=== PATIENT | female | born 1945 | race Caucasian/White ===

== ENCOUNTER → 2024-03-09 | Outpatient (CLI) | payer MEDICARE, BC ==
[~2024-03-09] MED LIST: (None)20 M1 PO; BENZ100A PO; Zithromax250 MG PO
== END | disposition home or self-care (01) ==
LOC: LAB SHORT 10:00 → LAB 10:00
DX: A63.0 Anogenital (venereal) warts (principal)
CPT/HCPCS: 87070; 87205

== ENCOUNTER → 2024-03-22 | Outpatient (CLI) | payer MEDICARE, BC ==
[2024-03-23 19:35] LABS: Creatinine Urine 83.7 mg/dL (27.00-270.00); Protein, Urine Quantitative 82.9 mg/dL (0.0-11.9)
[2024-03-28 15:47] LABS: ALPHA-1 %,URINE 0.2 %; ALPHA-2 %,URINE 0.3 %; BETA GLOBULIN %,URINE 61.4 %; GAMMA GLOBULIN %,URINE 20.1 %; HOURS COLLECTED 24 hr; PARAPROTEIN EXCRETION/24 HOUR 276.5; TOTAL VOLUME 500 mL
== END ==
LOC: LAB 19:00 → LAB SHORT 19:00 → LAB FUT 03-21 14:35
PROVIDERS: Internal Medicine Nephrology
DX: N18.30 Chronic kidney disease, stage 3 unspecified (principal); D63.1 Anemia in chronic kidney disease; N25.81 Secondary hyperparathyroidism of renal origin; E55.9 Vitamin D deficiency, unspecified; E78.00 Pure hypercholesterolemia, unspecified; R76.9 Abnormal immunological finding in serum, unspecified; R94.5 Abnormal results of liver function studies; R94.6 Abnormal results of thyroid function studies; D51.8 Other vitamin B12 deficiency anemias; D52.8 Other folate deficiency anemias; D50.9 Iron deficiency anemia, unspecified
CPT/HCPCS: 81050; 82043; 82570; 84156; 84166; 86335

== ENCOUNTER 2024-06-13 05:41 | Inpatient (IN) | payer MEDICARE, BC ==
[~2024-06-13] VITALS: Ht 165.1 cm; Wt 90.4 kg
[2024-06-13 06:17] LABS: BASOPHILS ABSOLUTE AUTO 0.02 K/mm3 (0.00-0.23); BASOPHILS PERCENT AUTO 1 % (0-2); EOSINOPHILS PERCENT AUTO 3 % (0-6); Hemoglobin 8.6 g/dL (11.5-16.0); IMMATURE GRAN ABSOLUTE AUTO 0.03 K/mm3 (0.00-0.10); IMMATURE GRAN PERCENT AUTO 1 % (0-1); LYMPHOCYTES ABSOLUTE AUTO 1.01 K/mm3 (0.84-5.20); LYMPHOCYTES PERCENT AUTO 26 % (21-46); MONOCYTES ABSOLUTE AUTO 0.33 K/mm3 (0.16-1.47); MONOCYTES PERCENT AUTO 9 % (4-13); Mean Corpuscular HGB 30.7 pg (26.0-34.0); Mean Corpuscular HGB Conc 29.7 g/dL (31.5-36.5); Mean Corpuscular Volume 104 fL (80-100); Mean Platelet Volume 10.4 fL (9.1-12.4); NEUTROPHILS ABSOLUTE AUTO 2.35 K/mm3 (1.96-9.15); NEUTROPHILS PERCENT AUTO 61 % (41-73); Platelet Count 148 K/mm3 (150-400); RDW Coefficient Variation 19.9 % (11.7-14.2); RDW Standard Deviation 73.3 fL (35.1-46.3); White Blood Cell Count 3.84 K/mm3 (4.00-11.30)
[2024-06-13 06:35] LABS: Source, Urine Straight Cath
[2024-06-13 06:43] LABS: Bicarbonate Venous 26.2 mmol/L (24.0-30.0); PCO2 Venous 31.5 mmHg (38-42); pH Blood Venous 7.51 (7.34-7.37)
[2024-06-13 06:45] LABS: Appearance, Urine Cloudy (Clear); Bilirubin, Urine Neg (Neg); Blood, Urine 4+ (Neg); Color, Urine Yellow (P-Yellow); Glucose Qualitative, Urine Neg (Neg); Ketones, Urine Neg (Neg); Leukocyte Esterase, Urine 3+ (Neg); Nitrite, Urine Pos (Neg); Protein, Urine 3+ (Neg); Urobilinogen, Urine NORM (Normal)
[2024-06-13 07:05] LABS: White Blood Cells, Urine TNTC /hpf (0-5)
[2024-06-13 07:06] LABS: Bacteria Many /hpf; Squamous Epithelial Cells Mod /hpf (Few)
[2024-06-13] MEDS ORDERED: NS 1,000 ML IV SCH (07:20)
[2024-06-13] MEDS ORDERED: Azithromycin 500 MG in NS 250 ML IV ONE (07:20)
[2024-06-13] MEDS ORDERED: CefTRIAXone Sodium 1,000 MG in NS 50 ML IV ONE (07:20)
[2024-06-13 07:26] LABS: Influenza A, PCR NEGATIVE (NEGATIVE); Influenza B, PCR NEGATIVE (NEGATIVE); Resp Syncytial Virus, PCR NEGATIVE (NEGATIVE); SARS-Cov-2 (COVID-19) PCR, MMC NEGATIVE (NEGATIVE)
[2024-06-13] MEDS ORDERED: Acetaminophen 500 MG Tab PO ONE (07:50)
[2024-06-13 08:20] LABS: Albumin, Blood 2.3 g/dL (3.4-5.0); Albumin/Globulin Ratio 0.4 (0.8-1.8); Bilirubin, Total 0.3 mg/dL (0.1-1.0); Bun/Creatinine Ratio 23.3 (12.0-20.0); Calcium, Blood 9.1 mg/dL (8.5-10.1); Creatinine, Blood 1.59 mg/dL (0.40-1.00); Globulin, Blood 5.2 g/dL (2.2-4.0); Magnesium, Blood 2.2 mg/dL (1.6-2.4); Phosphorus, Blood 3.5 mg/dL (2.5-4.9); Potassium, Blood 5.3 mmol/L (3.5-5.5); Thyroid Stimulating Hormone 0.728 uIU/mL (0.360-4.800); Total Protein, Blood 7.5 g/dL (6.4-8.2)
[2024-06-13] MEDS ORDERED: Furosemide 10 MG / ML 2ML Vial IV ONE (08:35)
[2024-06-13] MEDS ORDERED: ATOR40TA PO (09:15)
[2024-06-13] MEDS ORDERED: LOSA25 PO (09:15)
[2024-06-13] MEDS ORDERED: ASCO500 PO (09:15)
[2024-06-13] MEDS ORDERED: VITAMIN B-122000 MC1 PO (09:16)
[2024-06-13] MEDS ORDERED: Colace100 MG PO (09:16)
[2024-06-13] MEDS ORDERED: FAMO20 PO (09:17)
[2024-06-13] MEDS ORDERED: Fleet Enema132 ML PR (09:17)
[2024-06-13] MEDS ORDERED: BISA10S PR (09:17)
[2024-06-13] MEDS ORDERED: MELA3 PO (09:18)
[2024-06-13] MEDS ORDERED: METO25 PO (09:18)
[2024-06-13] MEDS ORDERED: GABA100 PO (09:18)
[2024-06-13] MEDS ORDERED: NITR.4SL SL (09:18)
[2024-06-13] MEDS ORDERED: DULCOLAX400 MG/51 PO (09:18)
[2024-06-13] MEDS ORDERED: ONDA4ODT MM (09:19)
[2024-06-13] MEDS ORDERED: OXYC5 PO (09:19)
[2024-06-13] MEDS ORDERED: ALBU90OI INH (09:20)
[2024-06-13] MEDS ORDERED: FLU VACC TS2024-25(6MOS UP)/PF 45 MCG/0.5 ML SYRINGE IM SCH (09:50)
[2024-06-13] MEDS ORDERED: Ondansetron HCl 2 MG / ML 2ML Vial IV PRN (09:50)
[2024-06-13] MEDS ORDERED: OxyCODONE HCL 5 MG TAB PO PRN (10:20)
[2024-06-13] MEDS ORDERED: Polyethylene Glycol 3350 17 gm PO PRN (10:20)
[2024-06-13] MEDS ORDERED: Midodrine 2.5 MG Tab PO SCH (11:00)
[2024-06-13] MEDS ORDERED: Metoprolol Tartrate 25 MG Tab PO SCH ×2 (13:00→21:00)
[2024-06-13] MEDS ORDERED: Midodrine 5 MG Tab PO SCH ×2 (13:00→18:00)
[2024-06-13] MEDS ORDERED: Miconazole Nitrate 2% 85 GM PWD TOP SCH (16:00)
[2024-06-13] MEDS ORDERED: Lactated Ringer's 1,000 ML IV SCH (16:15)
[2024-06-13 16:53] VITALS: BP 106/67
--- NOTE | 2024-06-13 17:27 | NUR ---
ADMISSION NOTE PT ARRIVED TO PCU AT APPROX. 1630. SHE IS ALERT TO SELF, PLACE AND FAMILY. SHE IS ABLE TO MAKE HER NEEDS KNOWN AND FOLLOWS COMMANDS. SHE ARRIVED ON 3L VIA NC WHICH IS BASELINE O2 DEMAND, SPO2 IS 97%, SHE DENIES FEELING SOB. HR NOTED TO BE AFIB 100'S, SHE DENIES FEELING CHEST PAIN/PRESSURE. PRESSURE WOUND NOTED ON COCCYX. WOUND APPEARS TO BE STAGE 3 PRESSURE ULCER. WOUND WAS CLEANED BY THIS RN AND CALCIUM ALGINATE WAS APPLIED, PLEASE SEE PHOTOS IN CHART. SBP NOTED TO BE 90-106, MIDODRINE GIVEN PER EMAR ORDERS. PW DEVICE IN IN PLACE. CALL LIGHT IS W/IN REACH.
--- NOTE | 2024-06-13 19:47 | NUR ---
ASSUMPTION OF CARE Assumed pt's care at 1900.Bedside report completed with daysvaft nurse.Pt's daughter at bedside.Plan of care reviewed with pt.Pt denies pain,denies discomfort,denies needs at this time.Call light and pt's items within reach.Will continue to monitor.
[2024-06-13 20:03] VITALS: BP 118/99
[2024-06-13] MEDS ORDERED: Sennosides 8.6 MG Tab PO SCH (21:00)
[2024-06-13] MEDS ORDERED: Lactobacil 2-S.Thermo-Bifido 1 1 Cap PO SCH (21:00)
[2024-06-14 00:20] VITALS: BP 103/59
[2024-06-14 03:49] LABS: BASOPHILS ABSOLUTE AUTO 0.01 K/mm3 (0.00-0.23); BASOPHILS PERCENT AUTO 0 % (0-2); EOSINOPHILS ABSOLUTE AUTO 0.12 K/mm3 (0.00-0.68); EOSINOPHILS PERCENT AUTO 5 % (0-6); Hematocrit 22.5 % (33.0-51.0); Hemoglobin 6.7 g/dL (11.5-16.0); IMMATURE GRAN ABSOLUTE AUTO 0.03 K/mm3 (0.00-0.10); IMMATURE GRAN PERCENT AUTO 1 % (0-1); LYMPHOCYTES ABSOLUTE AUTO 0.83 K/mm3 (0.84-5.20); LYMPHOCYTES PERCENT AUTO 31 % (21-46); MONOCYTES PERCENT AUTO 11 % (4-13); Mean Corpuscular HGB 31.2 pg (26.0-34.0); Mean Corpuscular HGB Conc 29.8 g/dL (31.5-36.5); Mean Corpuscular Volume 105 fL (80-100); Mean Platelet Volume 9.9 fL (9.1-12.4); NEUTROPHILS PERCENT AUTO 52 % (41-73); Platelet Count 120 K/mm3 (150-400); RDW Coefficient Variation 19.8 % (11.7-14.2); RDW Standard Deviation 73.4 fL (35.1-46.3); Red Blood Cell Count 2.15 M/mm3 (3.80-5.20); White Blood Cell Count 2.69 K/mm3 (4.00-11.30)
[2024-06-14 04:14] LABS: Albumin/Globulin Ratio 0.4 (0.8-1.8); Bilirubin, Total 0.2 mg/dL (0.1-1.0); Calcium, Blood 9.4 mg/dL (8.5-10.1); Creatinine, Blood 1.6 mg/dL (0.40-1.00); Potassium, Blood 5.3 mmol/L (3.5-5.5)
[2024-06-14 04:16] VITALS: BP 115/62
[2024-06-14 05:57] LABS: BASOPHILS ABSOLUTE AUTO 0.02 K/mm3 (0.00-0.23); BASOPHILS PERCENT AUTO 1 % (0-2); EOSINOPHILS ABSOLUTE AUTO 0.16 K/mm3 (0.00-0.68); EOSINOPHILS PERCENT AUTO 5 % (0-6); Hematocrit 24.8 % (33.0-51.0); Hemoglobin 7.5 g/dL (11.5-16.0); IMMATURE GRAN ABSOLUTE AUTO 0.03 K/mm3 (0.00-0.10); IMMATURE GRAN PERCENT AUTO 1 % (0-1); LYMPHOCYTES ABSOLUTE AUTO 0.85 K/mm3 (0.84-5.20); LYMPHOCYTES PERCENT AUTO 25 % (21-46); MONOCYTES PERCENT AUTO 12 % (4-13); Mean Corpuscular HGB 31.4 pg (26.0-34.0); Mean Corpuscular HGB Conc 30.2 g/dL (31.5-36.5); Mean Corpuscular Volume 104 fL (80-100); Mean Platelet Volume 9.9 fL (9.1-12.4); NEUTROPHILS ABSOLUTE AUTO 1.88 K/mm3 (1.96-9.15); NEUTROPHILS PERCENT AUTO 56 % (41-73); Platelet Count 131 K/mm3 (150-400); RDW Coefficient Variation 19.9 % (11.7-14.2); RDW Standard Deviation 73.1 fL (35.1-46.3); Red Blood Cell Count 2.39 M/mm3 (3.80-5.20); White Blood Cell Count 3.34 K/mm3 (4.00-11.30)
--- NOTE | 2024-06-14 07:33 | NUR ---
SHIFT SUMMARY PT HAS BEEN AWAKE MOST OF THE NIGHT.PT REFUSED Q2H TURNS,REPORTS THAT SHE DOES NOT WANT TO TURN DUE TO PAIN.TEACHING ON THE PRESSURE INJURY REDUCTION TEACHING COMPLETED,PT VERBALIZES UNDERSTANDING.PT REPORTES PAIN AT 5/10 THROUGHOUT THE NIGHT BUT DENIED NEED FOR PRN PAIN MEDICINE.PT AWAKE THIS MORNING,DENIES PAIN,DENIES NEEDS.CALL LIGHT AND PT'S ITEMS WITHIN REACH.
[2024-06-14 08:54] VITALS: BP 118/46
[2024-06-14] MEDS ORDERED: Atorvastatin 40 MG Tab PO SCH (09:00)
[2024-06-14] MEDS ORDERED: Enoxaparin 40 MG/0.4 ML SYR SC SCH (09:00)
[2024-06-14] MEDS ORDERED: CefTRIAXone Sodium 1,000 MG in NS 100 ML IV SCH (09:00)
[2024-06-14 12:16] VITALS: BP 130/60
[2024-06-14] MEDS ORDERED: Sod Phosphate/Sod Biphosphate 132 ML BTL PR ONE (13:30)
[2024-06-14] MEDS ORDERED: Metoprolol Tartrate 25 MG Tab PO ONE (16:05)
[2024-06-14 16:21] VITALS: BP 126/60
--- NOTE | 2024-06-14 18:13 | NUR ---
Shift Summary Pt alert, oriented x3; forgetful and anxious at times. Up to bsc with sba. Dressing to coccyx changed this afternoon to match the orders at [facility]. Pt report pain, medicated per emar. Pt denies chest pain/pressure, sob, nausea, dizziness and numb/tingling. Spo2 >90% on 3l 2 via nc. Tele afib 90-120'S, occasionally 130-150's, bp stable. Other vss. Abd soft, tender on palp, +hypoactive t/o; pt reports constipation, pt has hard stool at recum and is unable to pass, notifed Dr Mayo, new order for enema. Administered with positive results. This evening pt had run of SVT, Dr Mayo notified, new orders for BMP and mag. Other vss. No other acute chagnes noted. Will continue to monitor.
[2024-06-14 19:48] LABS: Bun/Creatinine Ratio 30.3 (12.0-20.0); Calcium, Blood 9.3 mg/dL (8.5-10.1); Creatinine, Blood 1.45 mg/dL (0.40-1.00); Magnesium, Blood 1.8 mg/dL (1.6-2.4); Potassium, Blood 4.8 mmol/L (3.5-5.5)
[2024-06-14 20:55] VITALS: BP 124/59
[2024-06-14] MEDS ORDERED: Arginine/Glutamine/Calcium Hmb 1 Packet PO SCH (21:00)
[2024-06-15] VITALS (19 sets, daily range): BP systolic 126–168; BP diastolic 47–85
--- NOTE | 2024-06-15 04:50 | NUR ---
SHIFT SUMMARY. SHIFT HAS BEEN UNREMARKABLE. PT AOX4, PLEASANT, COOPERATIVE WITH CARE, ABLE TO MAKE NEEDS KNOWN. AT TIMES IRRITABLE BUT OVERALL PLEASANT. HAS BEEN ABLE TO REST COMFORTABLY THROUGHOUT MOST OF SHIFT. HAS CONTINUED TO DENY PAIN. VITALS HAVE BEEN STABLE. CONVERTED TO SINUS EARLY IN SHIFT AND HAS MAINTAINED IN SINUS RHYTHM SINCE. DRESSING FROM DAY SHIFT REMAINS C/D/I. O2 DEMANDS HAVE REMAINED COMPLETELY STABLE. URINE OUTPUT HAS BEEN MINIMAL THROUGHOUT SHIFT BUT CHARTED APPROPRIATELY. BED LOCKED IN LOWEST POSITION. CALL LIGHT LEFT WITHIN REACH. CONTINUING TO MONITOR.
[2024-06-15] MEDS ORDERED: Meropenem 1,000 MG in NS 100 ML IV SCH (07:44)
[2024-06-15] MEDS ORDERED: NS 250 ML IV PRN (08:40)
[2024-06-15 08:59] LABS: BASOPHILS ABSOLUTE AUTO 0.01 K/mm3 (0.00-0.23); BASOPHILS PERCENT AUTO 0 % (0-2); EOSINOPHILS ABSOLUTE AUTO 0.14 K/mm3 (0.00-0.68); EOSINOPHILS PERCENT AUTO 5 % (0-6); Hematocrit 21.5 % (33.0-51.0); Hemoglobin 6.4 g/dL (11.5-16.0); IMMATURE GRAN ABSOLUTE AUTO 0.02 K/mm3 (0.00-0.10); IMMATURE GRAN PERCENT AUTO 1 % (0-1); LYMPHOCYTES ABSOLUTE AUTO 0.88 K/mm3 (0.84-5.20); LYMPHOCYTES PERCENT AUTO 31 % (21-46); MONOCYTES ABSOLUTE AUTO 0.27 K/mm3 (0.16-1.47); MONOCYTES PERCENT AUTO 10 % (4-13); Mean Corpuscular HGB 30.6 pg (26.0-34.0); Mean Corpuscular HGB Conc 29.8 g/dL (31.5-36.5); Mean Corpuscular Volume 103 fL (80-100); Mean Platelet Volume 10.5 fL (9.1-12.4); NEUTROPHILS PERCENT AUTO 53 % (41-73); Platelet Count 134 K/mm3 (150-400); RDW Coefficient Variation 19.9 % (11.7-14.2); RDW Standard Deviation 72.4 fL (35.1-46.3); Red Blood Cell Count 2.09 M/mm3 (3.80-5.20); White Blood Cell Count 2.82 K/mm3 (4.00-11.30)
[2024-06-15] MEDS ORDERED: Protein Supplement 30 ML UD PO SCH (09:00)
[2024-06-15 09:18] LABS: Bun/Creatinine Ratio 31.7 (12.0-20.0); Calcium, Blood 9.5 mg/dL (8.5-10.1); Creatinine, Blood 1.42 mg/dL (0.40-1.00); Potassium, Blood 4.7 mmol/L (3.5-5.5)
--- NOTE | 2024-06-15 12:07 | NUR ---
PT WITH LOW HBG. CALL PLACED TO PROVIDER TO UPDATE HER OF RESULTS. 1 UNIT OF PACKED RBC'S ORDERED. CONSENT FORM SIGNED AND PLACED IN CHART. VERIFIED BLOOD WITH GIANNI Alves RN. VS STABLE, AFEBRILE. PT COMPLETED FIRST 15 MINUTES OF TRANSFUSION, TOLERATING WELL. RATE INCREASED. VS STABLE AFTER 15 MINUTES. L/S CLEAR. BLOOD TRANSFUSING.
[2024-06-15 16:17] LABS: Hematocrit 23.9 % (33.0-51.0); Hemoglobin 7.3 g/dL (11.5-16.0)
[2024-06-15 17:16] LABS: IMMATURE RETIC FRACTION 19.1 % (2.3-16.0); RETIC HGB EQUIVALENT 28.7 pg (28.20-36.60); RETICULOCYTE ABSOLUTE 0.0238 M/mm3 (0.0200-0.1100); RETICULOCYTE COUNT PERCENT 1.01 % (0.50-2.50)
[2024-06-15] MEDS ORDERED: Metoprolol Tartrate 1 MG/ML 5 ML VIAL IV ONE (18:00)
--- NOTE | 2024-06-15 18:38 | NUR ---
SHIFT SUMMARY PT A&O X4, CALM, COOPERATIVE TO CARE. HR IN THE 80'S SR, DENIES CP/PRESSURE, NUMB/TINGLING. SBP STABLE T/O SHIFT, MIDORINE ORDERED TID, PT BP IN THE 140'S T/O SHIFT MIDODRINE D/C'D. O2 >92% ON 3L VIA NC, 3L AT BASELINE. PT WITH COCCYX WOUND. WOUND DRESSING CHANGED TODAY PER ORDERS. PT HAD LOW HGB OF 6.4, PROVIDER NOTIFIED, 1 UNIT OF PACKED RBC'S ORDERED. TRANSFUSION COMPLETED, PT TOLERATED WELL AND REMAINED AFEBRILE. PT REPORTED NAUSEA AFTER REPOSTIONING, MEDICATED PER EMAR. HGB INCREASED TO 7.3. PROVIDER ORDERED STOOL SAMPLE, NOT COLLECTED YET. THIS AFTERNOON PTS HR JUMPED INTO THE 130'S AND SUSTAINED. PT REPORTED DIZZY/LIGHTHEADED WITH CHEST PAIN. NOTIFIED. ORDER FOR LOPRESSOR PUSH PLACED. PT RESTING IN BED AT THIS TIME. REPORTS CP HAS RESOLVED BUT STILL HAS SOME DIZZINESS. SBP STABLE. DENIES QUESTIONS OR CONCERNS. WILL MONITOR PT AND REPORT TO ORDER DISPATCHER CHIEF RN.
[2024-06-15] MEDS ORDERED: Calcium Carbonate 500 MG Tab Chew PO PRN (19:40)
[2024-06-15] MEDS ORDERED: Metoprolol Tartrate 25 MG Tab PO SCH ×2 (21:00)
[2024-06-16 00:06] VITALS: BP 124/43
[2024-06-16 04:12] VITALS: BP 156/61
--- NOTE | 2024-06-16 05:01 | NUR ---
SHIFT SUMMARY. SHIFT HAS BEEN UNREMARKABLE. PT HAS BEEN ABLE TO REST COMFORTABLY THROUGHOUT MOST OF SHIFT. VITALS HAVE REMAINED STABLE. EARLY IN SHIFT, PT CONVERTED TO AFLUTTER WITH RATE SUSTAINED IN THE 120s-140s. MAINTAINED FOR FEW MINUTES BEFORE CONVERTING BACK TO SINUS. PT HAS BEEN IN SINUS SINCE WITH RATE MOSTLY IN THE 60s-70s. PT HAS APPEARED PAINFUL AT TIMES THROUGHOUT SHIFT BUT HAS CONTINUED TO DENY ANY PAIN MANAGEMENT VIA EMAR. AT TIMES ALLOWS FOR STAFF TO ASSIST WITH REPOSITIONING BUT AT OTHER TIMES REFUSES. IS ABLE TO REPOSITION SELF NEEDED. PT HAS HAD PUREWICK IN PLACE THROUGHOUT SHIFT. ONE DRESSING CHANGE PERFORMED THIS MORNING D/T SATURATION. OTHERWISE SHIFT HAS BEEN UNREMARKABLE. BED LOCKED IN LOWEST POSITION. CALL LIGHT LEFT WITHIN REACH. CONTINUING TO MONITOR.
[2024-06-16 05:02] LABS: BASOPHILS ABSOLUTE AUTO 0.02 K/mm3 (0.00-0.23); BASOPHILS PERCENT AUTO 1 % (0-2); EOSINOPHILS ABSOLUTE AUTO 0.11 K/mm3 (0.00-0.68); EOSINOPHILS PERCENT AUTO 3 % (0-6); Hematocrit 26.9 % (33.0-51.0); Hemoglobin 7.9 g/dL (11.5-16.0); IMMATURE GRAN ABSOLUTE AUTO 0.06 K/mm3 (0.00-0.10); IMMATURE GRAN PERCENT AUTO 2 % (0-1); LYMPHOCYTES ABSOLUTE AUTO 0.93 K/mm3 (0.84-5.20); LYMPHOCYTES PERCENT AUTO 29 % (21-46); MONOCYTES ABSOLUTE AUTO 0.29 K/mm3 (0.16-1.47); MONOCYTES PERCENT AUTO 9 % (4-13); Mean Corpuscular HGB 30.7 pg (26.0-34.0); Mean Corpuscular HGB Conc 29.4 g/dL (31.5-36.5); Mean Corpuscular Volume 105 fL (80-100); Mean Platelet Volume 10.1 fL (9.1-12.4); NEUTROPHILS ABSOLUTE AUTO 1.78 K/mm3 (1.96-9.15); NEUTROPHILS PERCENT AUTO 56 % (41-73); Platelet Count 128 K/mm3 (150-400); RDW Coefficient Variation 20.5 % (11.7-14.2); RDW Standard Deviation 77.1 fL (35.1-46.3); Red Blood Cell Count 2.57 M/mm3 (3.80-5.20); White Blood Cell Count 3.19 K/mm3 (4.00-11.30)
[2024-06-16 06:01] LABS: Bun/Creatinine Ratio 47.2 (12.0-20.0); Calcium, Blood 10.1 mg/dL (8.5-10.1); Creatinine, Blood 1.25 mg/dL (0.40-1.00)
[2024-06-16 07:24] VITALS: BP 164/56
[2024-06-16 08:47] LABS: Albumin, Blood 2.3 g/dL (3.4-5.0); Albumin/Globulin Ratio 0.4 (0.8-1.8); Bilirubin, Direct 0.1 mg/dL (0.0-0.3); Bilirubin, Indirect 0.4 mg/dL (0.1-0.7); Bilirubin, Total 0.5 mg/dL (0.1-1.0); Globulin, Blood 5.3 g/dL (2.2-4.0); Total Protein, Blood 7.6 g/dL (6.4-8.2)
[2024-06-16] MEDS ORDERED: Furosemide 10 MG/ML 4ML Vial IV ONE (09:45)
[2024-06-16 12:46] VITALS: BP 128/50
--- NOTE | 2024-06-16 14:33 | NUR ---
ORDER PLACED BY PROVIDER FOR 24 HOUR URINE COLLECTION. PT HAD PUREWICK IN PLACE, PUREWICK WAS REMOVED. PT BOTH INCONTENENT AND CONTINENT. FIRST URINATION DISCARDED. CALL PLACED TO PROVIDER TO INFORM THEM PT HAVING INCONTINCE AND UNABLE TO ACCURATELY COLLECT URINE SPECIMEN. PROVIDER STILL WANTING TO COLLECT SPECIMEN. WILL ATTMEPT TO COLLECT URINE PER PROTOCOL.
[2024-06-16] MEDS ORDERED: Azithromycin 500 MG in NS 250 ML IV SCH (16:00)
[2024-06-16] MEDS ORDERED: Metoprolol Tartrate 25 MG Tab PO ONE (17:40)
[2024-06-16 17:56] VITALS: BP 130/75
--- NOTE | 2024-06-16 18:10 | NUR ---
SHIFT SUMMARY PT A&O X4, CALM, COOPERATIVE TO CARE. PT WAS IN SR WITH HR IN THE 60'S UNTIL 1600, PT CONVERTED TO AFLUTTER IN THE 110'S-120'S, SHE DENIES ANY CP/PRESSURE, DIZZY OR LIGHTHEADED. MD CALLED, AN ADDITIONAL DOSE OF METOPROLOL 25 MG ORDERED IN ADDITION TO PT SCHEDULED DOSE. BP IN THE 120'S-130'S T/O SHIFT. PER PROVIDER IF NO IMPROVEMENT TONIGHT TO CONTACT THE HOSPITALIST FOR FURTHER MEDICATION INSTRUCTION. O2 >92% ON 3L VIA NC, 3L AT BASELINE. PT REPORTED CONGESTION THIS AM. PROVIDER WAS AT BEDSIDE AT THIS TIME, PROVIDER ORDERED ONE TIME DOSE OF LASIX. PT DENIES SOB AT THIS TIME. PUREWICK REMOVED TODAY, PT AMBULATING TO BATHROOM/COMMODE WITH WALKER. 24 HOUR URINE COLLECTION STARTED AT 1415 TODAY. CONTAINER IN BATHROOM ON ICE COLLECTING URINE. WOUND DRESSING CHANGED THIS AFTERNOON, C/D/I. PT DENIES ANY QUESTIONS AT THIS TIME. WILL MONITOR PT AND REPORT TO SALES AND MARKETING ASSISTANT RN.
[2024-06-16 20:58] VITALS: BP 105/59
[2024-06-17 00:51] VITALS: BP 114/57
[2024-06-17 04:27] VITALS: BP 139/89
[2024-06-17] MEDS ORDERED: Metoprolol Tartrate 1 MG/ML 5 ML VIAL IV ONE (04:30)
--- NOTE | 2024-06-17 04:58 | NUR ---
SHIFT SUMMARY. SHIFT HAS BEEN UNREMARKABLE THUS FAR. PT AOX4, PLEASANT, COOPERATIVE WITH CARE, ABLE TO MAKE NEEDS KNOWN. HAS BEEN ABLE TO REST COMFORTABLY THROUGHOUT MOST OF SHIFT. PT HAS BEEN MILDLY TACHYCARDIC THROUGHOUT SHIFT, MORESO WITH ACTIVITY. SPOKE WITH DR. CHACON FEW TIMES. ORDERED MAG DRAW WHICH WAS NORMAL. LATER THIS MORNING ORDERED ONE TIME DOSE OF LOPRESSOR IV 5 MG WHICH WAS ADMINISTERING, MONITORING FOR EFFICACY. 24 HOUR URINE COLLECTION CONTINUES TO RUN. PT HAD 1 INCONTINENT VOID WHICH WAS UNABLE TO BE COLLECTED. OTHERWISE ALL URINE OUTPUT HAS BEEN COLLECTED IN SPECIMEN CONTAINER. PT HAS BEEN ON 3 L O2 VIA NC AND HAS MAINTAINED ADEQUATE SATURATION. PT HAS DENIED PAIN THROUGHOUT SHIFT. BED LOCKED IN LOWEST POSITION. CALL LGIHT LEFT WITHIN REACH. CONTINUING TO MONITOR.
[2024-06-17 07:26] VITALS: BP 117/81
[2024-06-17 09:07] LABS: BASOPHILS ABSOLUTE AUTO 0.02 K/mm3 (0.00-0.23); BASOPHILS PERCENT AUTO 1 % (0-2); EOSINOPHILS ABSOLUTE AUTO 0.09 K/mm3 (0.00-0.68); EOSINOPHILS PERCENT AUTO 3 % (0-6); Hematocrit 25.9 % (33.0-51.0); IMMATURE GRAN ABSOLUTE AUTO 0.06 K/mm3 (0.00-0.10); IMMATURE GRAN PERCENT AUTO 2 % (0-1); LYMPHOCYTES ABSOLUTE AUTO 0.78 K/mm3 (0.84-5.20); LYMPHOCYTES PERCENT AUTO 24 % (21-46); MONOCYTES PERCENT AUTO 12 % (4-13); Mean Corpuscular HGB Conc 30.9 g/dL (31.5-36.5); Mean Platelet Volume 10.5 fL (9.1-12.4); NEUTROPHILS ABSOLUTE AUTO 1.88 K/mm3 (1.96-9.15); NEUTROPHILS PERCENT AUTO 58 % (41-73); NRBC ABSOLUTE 0.02 K/mm3 (0.00-0.02); NRBC Auto 0.6 /100 WBC (0.0-0.2); Platelet Count 130 K/mm3 (150-400); RDW Coefficient Variation 19.9 % (11.7-14.2); RDW Standard Deviation 69.5 fL (35.1-46.3); Red Blood Cell Count 2.58 M/mm3 (3.80-5.20); White Blood Cell Count 3.23 K/mm3 (4.00-11.30)
[2024-06-17 09:17] LABS: Mean Corpuscular Volume 100 fL (80-100)
[2024-06-17 09:26] LABS: Albumin, Blood 2.3 g/dL (3.4-5.0); Albumin/Globulin Ratio 0.4 (0.8-1.8); Bilirubin, Total 0.5 mg/dL (0.1-1.0); Bun/Creatinine Ratio 52.1 (12.0-20.0); Calcium, Blood 10.2 mg/dL (8.5-10.1); Creatinine, Blood 1.21 mg/dL (0.40-1.00); Globulin, Blood 5.2 g/dL (2.2-4.0); Potassium, Blood 4.5 mmol/L (3.5-5.5); Total Protein, Blood 7.5 g/dL (6.4-8.2)
--- NOTE | 2024-06-17 11:54 | NUR ---
ASSUMPTION OF CARE PT A&O X4, CALM, COOPERATIVE TO CARE. HR IN THE 90'S-100'S, AFLUTTER. DENIES CP/PRESSURE, NUMB/TINGLING. SBP STABLE. O2 >92% ON 3L VIA NC, 3L AT BASELINE, DENIES SOB AT THIS TIME. PT WITH PAIN FROM THE WOUND ON HER COCCYX, DRESSING CHANGES PER ORDER AND MEDICATING PER EMAR. PT SLEEPY BUT AWAKES EASILY. 24 HOUR URINE COLLECTION ONGOING, URINE ON ICE IN BATHROOM. PT AMBULATING TO TOILET WITH WALKER AND 1PA. PT STATUS CHANGE TO MEDICAL WITH TELE. ROOM AVAILABLE FOR PT. CALLED AND GAVE REPORT TO JASS MELENDREZ.
--- NOTE | 2024-06-17 13:08 | NUR ---
TRANSFER SUMMARY PT A&O X4. HR IN THE 90'S, AFLUTTER, BP STABLE. O2 >92% ON 3L VIA NC, 3L AT BL. DENIES SOB. PT RESTING IN BED. PT MEDICAL STATUS REPORT GIVEN TO MEDICAL FLOOR RN. PT TRANSFERED TO MEDICAL FLOOR VIA PCU BED WITH RN AND PCT.
--- NOTE | 2024-06-17 13:10 | NUR ---
1310 TO ROOM FROM [facility]
[2024-06-17 16:01] VITALS: BP 134/82
--- NOTE | 2024-06-17 18:45 | NUR ---
PT QUITE PLEASANT TODAY. TRANSFERRED FROM PCU TODAY. NO C/O PAIN. DRESSING CHANGED X2 TODAY R/T STOOL IN WOUND. AMBULATED MIN ASST TO BATHROOM. 24 HR URINE DONE, STOOL SAMPLE DONE. TURNING PT TO SIDE TO GET OFF WOUND MUCH POSSIBLE. NO FURHTER CONCERNS NOTED. BED IN LOW POSITION,C ALL LITE IN REACH, CALLS APPROP
[2024-06-17] MEDS ORDERED: NS 250 ML IV PRN (20:00)
[2024-06-17 20:39] VITALS: BP 130/79
--- NOTE | 2024-06-18 04:09 | NUR ---
SHIFT SUMMARY PATIENT HAD NO ACUTE CHANGES. AXOX 4 AND ONE ASSIST W/FWW TO BR. ON 3L O2 NC & BASELINE. DENIES CHEST PAIN, SOB, AND N/V. VSS/AFEBRILE. PIV INTACT. IV ABX INFUSED. DRESSING TO COCCYX CHANGED. PATIENT PREFERS SIDE LYING POSITION TO EASE COCCYX DISCOMFORT. DAUGHTER CALLED FOR UPDATE. CALL LIGHT IN REACH. BED IN LOWEST POSITION. WILL CONTINUE TO MONITOR UNTIL DAY SHIFT NURSE ASSUMES CARE.
[2024-06-18 05:02] VITALS: BP 135/76
[2024-06-18 05:31] LABS: BASOPHILS ABSOLUTE AUTO 0.02 K/mm3 (0.00-0.23); BASOPHILS PERCENT AUTO 1 % (0-2); EOSINOPHILS PERCENT AUTO 3 % (0-6); Hematocrit 26.4 % (33.0-51.0); Hemoglobin 8.3 g/dL (11.5-16.0); Mean Corpuscular HGB 31.2 pg (26.0-34.0); Mean Corpuscular HGB Conc 31.4 g/dL (31.5-36.5); Mean Corpuscular Volume 99 fL (80-100); Platelet Count 127 K/mm3 (150-400); RDW Coefficient Variation 19.8 % (11.7-14.2); RDW Standard Deviation 69.4 fL (35.1-46.3); Red Blood Cell Count 2.66 M/mm3 (3.80-5.20); White Blood Cell Count 3.47 K/mm3 (4.00-11.30)
[2024-06-18 05:44] LABS: IMMATURE GRAN ABSOLUTE AUTO 0.11 K/mm3 (0.00-0.10); IMMATURE GRAN PERCENT AUTO 3 % (0-1); LYMPHOCYTES ABSOLUTE AUTO 1.09 K/mm3 (0.84-5.20); LYMPHOCYTES PERCENT AUTO 31 % (21-46); MONOCYTES ABSOLUTE AUTO 0.38 K/mm3 (0.16-1.47); MONOCYTES PERCENT AUTO 11 % (4-13); NEUTROPHILS ABSOLUTE AUTO 1.77 K/mm3 (1.96-9.15); NEUTROPHILS PERCENT AUTO 51 % (41-73)
--- NOTE | 2024-06-18 05:48 | NUR ---
TELE MONITOR REPORTS FIVE BEAT RUN OF V-TACH X ONE. FIRST EVENT, AVIATION SAFETY OFFICER AWARE. WCTM.
[2024-06-18 06:25] LABS: Bun/Creatinine Ratio 43.9 (12.0-20.0); Calcium, Blood 10.1 mg/dL (8.5-10.1); Creatinine, Blood 1.23 mg/dL (0.40-1.00)
[2024-06-18 07:04] LABS: Stool Occult Blood Guaiac 1 Neg (Neg)
[2024-06-18 07:46] VITALS: BP 142/96
[2024-06-18] MEDS ORDERED: Metoprolol Succinate 25 MG TABCR PO SCH (09:00)
--- NOTE | 2024-06-18 12:37 | NUR ---
PER TELE. PT FLIPPED BACK TO NSR AT 60 FROM AFIB
[2024-06-18 15:24] VITALS: BP 129/55
--- NOTE | 2024-06-18 15:52 | NUR ---
SPOKE TO DR HALL IN KITCHEN. ORDERS FOR ARTIFICIAL TEARS, 2 GTT /4 HR NEEDED. L EYE
[2024-06-18] MEDS ORDERED: Peg 400/Hypromellose/Glycerin 15 DROP/ML BTL LEFTEYE PRN (15:55)
--- NOTE | 2024-06-18 17:11 | NUR ---
TELE CALLED HAS BEEN IN NSR SIINCE 1235 TODAY. JUST WENT TO SVT FOR ABOUT 2 MIN AT 130'S, THEN BACK TO NSR AT 70'S.
--- NOTE | 2024-06-18 17:14 | NUR ---
NOTIFIED DR HALL OF TELE A-TEX, NO NEW ORDERS
--- NOTE | 2024-06-18 18:19 | NUR ---
PT PLEASANT TODAY. DRESSING CHANGED TWICE TODAY. ABX RUNNING AT THIS TIME. PT CONTINUES TO BE HAVING LOOSE STOOLS. CONTINUES TO AMBULATE SBA TO BATHROOM. DID HAVE RUNS OF SVT AND DR NOTIFIED. DID CONVERT TO NSR LUNCH TIME TODAY AND HAS CONTINUED TO STAY ALL DAY. NO OTHER NEW CONCERNS NOTED. BED IN LOW POSITION, CALL LITE IN REACH, CALLS APPROP
[2024-06-18 19:19] VITALS: BP 148/67
--- NOTE | 2024-06-18 22:51 | NUR ---
TELE MONITOR REPORTS 6 SECOND RUN OF SVT AND BACK TO NSR. WCTM.
--- NOTE | 2024-06-19 04:30 | NUR ---
SHIFT SUMMARY PATIENT HAD NO ACUTE CHANGES. AXOX 4 AND SBA TO BR. ON 3L O2 NC BASELINE. TELE MONITOR NSR 70 WITH TWO TELE EVENTS: 6 SECOND RUN OF SVT AND 5 BEAT RUN OF V-TACH 3 HRS APART. DAY RN REPORTS ABOUT THE SAME AND DR AWARE. PIV INTACT. IV ABX INFUSED. EYES DROPS ADMINISTER PRN X ONE. DENIES CHEST PAIN, SOB, AND N/V. VSS/AFEBRILE. SLEPT MOST OF THE SHIFT. CALL LIGHT IN REACH. BED IN LOWEST POSITION. WILL CONTINUE TO MONITOR UNTIL DAY SHIFT NURSE ASSUMES CARE.
[2024-06-19 05:16] LABS: Hematocrit 24.9 % (33.0-51.0); Hemoglobin 7.7 g/dL (11.5-16.0); Mean Corpuscular HGB 31.3 pg (26.0-34.0); Mean Corpuscular HGB Conc 30.9 g/dL (31.5-36.5); Mean Corpuscular Volume 101 fL (80-100); Mean Platelet Volume 10.1 fL (9.1-12.4); Platelet Count 126 K/mm3 (150-400); RDW Coefficient Variation 19.8 % (11.7-14.2); RDW Standard Deviation 71.1 fL (35.1-46.3); Red Blood Cell Count 2.46 M/mm3 (3.80-5.20); White Blood Cell Count 3.93 K/mm3 (4.00-11.30)
[2024-06-19 05:34] LABS: Bun/Creatinine Ratio 45.9 (12.0-20.0); Calcium, Blood 10.1 mg/dL (8.5-10.1); Creatinine, Blood 1.22 mg/dL (0.40-1.00)
[2024-06-19 05:45] VITALS: BP 151/67
[2024-06-19 05:53] LABS: BAND PERCENT MAN 7 % (0-8); BASOPHILS ABSOLUTE MAN 0.03 K/mm3 (0.00-0.23); BASOPHILS PERCENT MAN 1 % (0-2); EOSINOPHILS ABSOLUTE MAN 0.07 K/mm3 (0.00-0.68); EOSINOPHILS PERCENT MAN 2 % (0-6); LYMPHOCYTES ABSOLUTE MAN 0.94 K/mm3 (0.84-5.20); LYMPHOCYTES PERCENT MAN 24 % (21-46); METAMYELOCYTE ABSOLUTE MAN 0.03 K/mm3 (0.00-0.00); METAMYELOCYTE PERCENT MAN 1 % (0-0); MONOCYTES ABSOLUTE MAN 0.27 K/mm3 (0.16-1.47); MONOCYTES PERCENT MAN 7 % (4-13); NEUTROPHILS ABSOLUTE MAN 2.55 K/mm3 (1.96-9.15); SEG NEUTROPHILS PERCENT MAN 58 % (41-73); TOTAL CELLS COUNTED 100
[2024-06-19 07:20] VITALS: BP 139/51
[2024-06-19] MEDS ORDERED: JUVEN PACKET1 EAC3 PO (14:27)
[2024-06-19] MEDS ORDERED: MEROPENEM1 G1 IV (14:27)
[2024-06-19] MEDS ORDERED: VISBIOME 112.51 EACH PO (14:27)
[2024-06-19] MEDS ORDERED: Calcium Carbon500 MG PO (14:27)
[2024-06-19] MEDS ORDERED: MICO100S VAG (14:28)
[2024-06-19] MEDS ORDERED: MIRALAX17 GM PO (14:28)
[2024-06-19] MEDS ORDERED: SENN187 PO (14:29)
[2024-06-19] MEDS ORDERED: Promod946 ML PO (14:29)
[2024-06-19 14:42] LABS: CORONAVIRUS COVID-19 AG Negative (NEGATIVE)
--- NOTE | 2024-06-19 14:48 | NUR ---
THIS RN CALLED [facility] TO GIVE REPORT. NO ANSWER, LEFT VM.
[2024-06-19 15:18] VITALS: BP 120/44
--- NOTE | 2024-06-19 15:21 | NUR ---
DISCHARGE NOTE PT DISCHARGED TO SNF [facility] AT 1520. PT A&OX4, VSS, AMB IND, TOLERATING PO, VOIDING, AND DENIED PAIN. WOUND CARE/DRESSING CHANGE COMPLETED. DISCHARGE PACKET GIVEN TO TRANSPORT. HARD SCRIPT COPY IN CHART AND SCRIPT PLACED IN DISCHARGE PACKET. BELONGINGS WERE RETURNED. PT ESCOURTED OUT VIA W/C BY TRANSPORT. THIS RN CALLED [facility] TO GIVE REPORT. NO ANSWER, LEFT VM.
[2024-06-20 08:11] LABS: IMMUNOGLOBULIN A 21 mg/dL (68-408); IMMUNOGLOBULIN G 2376 mg/dL (768-1632); IMMUNOGLOBULIN M 14 mg/dL (35-263)
[2024-06-20 09:25] LABS: ALBUMIN 2.75 g/dL (3.75-5.01); ALPHA 1 GLOBULIN 0.46 g/dL (0.19-0.46); ALPHA 2 GLOBULIN 0.96 g/dL (0.48-1.05); BETA GLOBULIN 0.69 g/dL (0.48-1.10); GAMMA 1.94 g/dL (0.62-1.51); IMMUNOFIXATION REFLEX IFE Done; TOTAL PROTEIN,SERUM 6.8 g/dL (6.3-8.2)
[2024-06-21 21:07] LABS: ALBUMIN %,URINE 30.2 %; ALPHA-1 %,URINE 2.6 %; ALPHA-2 %,URINE 6.8 %; BETA GLOBULIN %,URINE 36.2 %; GAMMA GLOBULIN %,URINE 24.2 %; HOURS COLLECTED Not Provided hr; PARAPROTEIN %,URINE 58.2 %; TOTAL VOLUME Not Provided mL
== END 2024-06-19 15:26 | DRG 871 ==
LOC: ER 05:41 → ERHOLD 09:49 → PCU 09:49 → MEDS 16:34 → PCU 17:02 → MEDS 06-17 13:14
PROVIDERS: Emergency Medicine; Student in an Organized Health Care Education/Training Program; ADMIT Internal Medicine
PROC: 3E03329 Introduction of Other Anti-infective into Peripheral Vein, Percutaneous Approach (ICD-10-PCS; principal; 2024-06-13)
PROC: 30233N1 Transfusion of Nonautologous Red Blood Cells into Peripheral Vein, Percutaneous Approach (ICD-10-PCS; 2024-06-15)
PROC: 8E0ZXY6 Isolation (ICD-10-PCS; 2024-06-19)
DX: A41.51 Sepsis due to Escherichia coli [E. coli] (principal); G93.41 Metabolic encephalopathy; J18.9 Pneumonia, unspecified organism; L89.153 Pressure ulcer of sacral region, stage 3; J96.01 Acute respiratory failure with hypoxia; N13.6 Pyonephrosis; J44.0 Chronic obstructive pulmonary disease with (acute) lower respiratory infection; D61.818 Other pancytopenia; Z16.12 Extended spectrum beta lactamase (ESBL) resistance; I50.32 Chronic diastolic (congestive) heart failure; I13.0 Hypertensive heart and chronic kidney disease with heart failure and stage 1 through stage 4 chronic kidney disease, or unspecified chronic kidney disease; R65.20 Severe sepsis without septic shock; N18.32 Chronic kidney disease, stage 3b; D63.1 Anemia in chronic kidney disease; I25.10 Atherosclerotic heart disease of native coronary artery without angina pectoris; Z86.73 Personal history of transient ischemic attack (TIA), and cerebral infarction without residual deficits; B96.20 Unspecified Escherichia coli [E. coli] as the cause of diseases classified elsewhere; I48.0 Paroxysmal atrial fibrillation; Z88.8 Allergy status to other drugs, medicaments and biological substances; Z87.442 Personal history of urinary calculi; Z95.1 Presence of aortocoronary bypass graft; Z79.899 Other long term (current) drug therapy; Z79.891 Long term (current) use of opiate analgesic
CPT/HCPCS: 0241U; 36415; 36430; 71045; 71250; 74176; 80048; 80053; 80076; 81001; 82272; 82784; 82803; 83521; 83605; 83690; 83735; 83880; 84100; 84145; 84155; 84165; 84443; 85014; 85018; 85025; 85045; 86334; 86850; 86900; 86901; 86923; 87040; 87077; 87086; 87186; 87426-QW; 93005; 93010; 93306; 94760; 94762; 96365; 96366; 96368; 96375; 97110; 97116; 97161; 97165; 97530; 99285-25; A9270; C1751; J0456; J0696; J1650; J1940; J2185; J2405; J7030; J7050; J7120; P9016; P9612

== ENCOUNTER 2024-06-22 13:00 | Inpatient (IN) | payer MEDICARE ==
[~2024-06-22] VITALS: Ht 172.7 cm; Wt 89.5 kg
[~2024-06-22 13:00] MED LIST changes: +ALBU90OI INH; +ASCO500 PO; +ATOR40TA PO; +BISA10S PR; +Calcium Carbon500 MG PO; +Colace100 MG PO; +DULCOLAX400 MG/51 PO; +FAMO20 PO; +Fleet Enema132 ML PR; +GABA100 PO; +JUVEN PACKET1 EAC3 PO; +LOSA25 PO; +MELA3 PO; +MEROPENEM1 G1 IV; +METO25 PO; +MICO100S VAG; +MIRALAX17 GM PO; +NITR.4SL SL; +ONDA4ODT MM; +OXYC5 PO; +Promod946 ML PO; +SENN187 PO; +VISBIOME 112.51 EACH PO; +VITAMIN B-122000 MC1 PO
[2024-06-22] MEDS ORDERED: LORazepam 2 MG/ML 1ML Injection ONE (13:15)
[2024-06-22] MEDS ORDERED: LORazepam 2 MG/ML 1ML Injection IV ONE ×2 (13:15→13:55)
[2024-06-22] MEDS ORDERED: Metoprolol Tartrate 1 MG/ML 5 ML VIAL IV ONE (13:55)
[2024-06-22] MEDS ORDERED: Lactated Ringer's 1,000 ML IV ONE (14:20)
[2024-06-22 14:29] LABS: BASOPHILS PERCENT AUTO 1 % (0-2); EOSINOPHILS ABSOLUTE AUTO 0.16 K/mm3 (0.00-0.68); EOSINOPHILS PERCENT AUTO 1 % (0-6); Hematocrit 35.6 % (33.0-51.0); Hemoglobin 10.9 g/dL (11.5-16.0); IMMATURE GRAN ABSOLUTE AUTO 0.34 K/mm3 (0.00-0.10); IMMATURE GRAN PERCENT AUTO 3 % (0-1); LYMPHOCYTES ABSOLUTE AUTO 4.65 K/mm3 (0.84-5.20); LYMPHOCYTES PERCENT AUTO 34 % (21-46); MONOCYTES ABSOLUTE AUTO 1.04 K/mm3 (0.16-1.47); MONOCYTES PERCENT AUTO 8 % (4-13); Mean Corpuscular HGB 31.1 pg (26.0-34.0); Mean Corpuscular HGB Conc 30.6 g/dL (31.5-36.5); Mean Corpuscular Volume 102 fL (80-100); Mean Platelet Volume 9.6 fL (9.1-12.4); NEUTROPHILS ABSOLUTE AUTO 7.31 K/mm3 (1.96-9.15); NEUTROPHILS PERCENT AUTO 54 % (41-73); NRBC ABSOLUTE 0.03 K/mm3 (0.00-0.02); NRBC Auto 0.2 /100 WBC (0.0-0.2); Platelet Count 206 K/mm3 (150-400); RDW Coefficient Variation 21.1 % (11.7-14.2); RDW Standard Deviation 74.5 fL (35.1-46.3)
[2024-06-22 15:01] LABS: Albumin, Blood 3.1 g/dL (3.4-5.0); Albumin/Globulin Ratio 0.5 (0.8-1.8); Bilirubin, Total 0.6 mg/dL (0.1-1.0); Bun/Creatinine Ratio 31.4 (12.0-20.0); Calcium, Blood 10.1 mg/dL (8.5-10.1); Creatinine, Blood 1.18 mg/dL (0.40-1.00); Globulin, Blood 6.2 g/dL (2.2-4.0); Potassium, Blood 4.7 mmol/L (3.5-5.5); Total Protein, Blood 9.3 g/dL (6.4-8.2)
[2024-06-22] MEDS ORDERED: Diltiazem HCl 5 MG / ML 5ML Vial IV ONE (15:25)
[2024-06-22 15:33] LABS: Free Thyroxine 1.32 ng/dL (0.70-1.60); Magnesium, Blood 1.9 mg/dL (1.6-2.4); Thyroid Stimulating Hormone 1.61 uIU/mL (0.360-4.800)
[2024-06-22 16:23] LABS: Source, Urine Clean Catch
[2024-06-22 16:27] LABS: Appearance, Urine Hazy (Clear); Bilirubin, Urine Neg (Neg); Blood, Urine 1+ (Neg); Glucose Qualitative, Urine Neg (Neg); Ketones, Urine Neg (Neg); Leukocyte Esterase, Urine 1+ (Neg); Nitrite, Urine Neg (Neg); Protein, Urine 3+ (Neg); Urobilinogen, Urine NORM (Normal)
[2024-06-22 16:46] LABS: Color, Urine Pale Yellow (P-Yellow)
[2024-06-22 16:50] LABS: Transitional Epithelial Cells Mod /hpf (0-Rare)
[2024-06-22 16:51] LABS: Bacteria Few /hpf; Squamous Epithelial Cells Few /hpf (Few)
[2024-06-22] MEDS ORDERED: Albuterol 2.5 MG/3 ML VIAL INH PRN ×2 (17:55→18:00)
[2024-06-22] MEDS ORDERED: Ondansetron HCl 2 MG / ML 2ML Vial IV PRN (18:00)
[2024-06-22] MEDS ORDERED: NS 1,000 ML IV SCH (18:00)
[2024-06-22] MEDS ORDERED: Aspirin 300 MG Supp PR SCH (18:00)
[2024-06-22] MEDS ORDERED: Meropenem 1,000 MG in NS 100 ML IV ONE (19:20)
[2024-06-22 21:06] LABS: Adenovirus Not Detected (NOT DETECT); Bordetella pertussis Not Detected (NOT DETECT); Chlamydophila pneumoniae Not Detected (NOT DETECT); Coronavirus 229E Not Detected (NOT DETECT); Coronavirus HKU1 Not Detected (NOT DETECT); Coronavirus NL63 Not Detected (NOT DETECT); Coronavirus OC43 Not Detected (NOT DETECT); Human Metapneumovirus Not Detected (NOT DETECT); Human Rhinovirus/Enterovirus Not Detected (NOT DETECT); Influenza A/2009-H1 Not Detected (NOT DETECT); Influenza A/H1 Not Detected (NOT DETECT); Influenza A/H3 Not Detected (NOT DETECT); Influenza B Not Detected (NOT DETECT); Mycoplasma pneumoniae Not Detected (NOT DETECT); Parainfluenza Virus 1 Not Detected (NOT DETECT); Parainfluenza Virus 2 Not Detected (NOT DETECT); Parainfluenza Virus 3 Not Detected (NOT DETECT); Parainfluenza Virus 4 Not Detected (NOT DETECT); Respiratory Syncytial Virus Not Detected (NOT DETECT); SARS-Cov-2 (COVID-19), BioFire Not Detected (NOT DETECT)
--- NOTE | 2024-06-22 22:00 | NUR ---
ADMISSION REPORT RECEIVED FROM ER NURSE. PATIENT ARRIVES TO PCU 18, SLID OVER TO PCU BED WITH ASISSTANCE OF STAFF. PATIENT ALERT WITH EYES OPEN, OCCASIONAL WORDS BUT IS NOT ORIENTED. PATIENT UNABLE TO FOLLOW COMMANDS OR TRACK STAFF WITH EYES. PATIENT MOVING EXTREMITITES BUT DOES NOT FOLLOW COMMANDS TO MONORAIL OPERATOR STAFF HANDS. CARDIZEM GTT INFUSING, TELE READING AFIB 80-90s. BP STABLE. ON 2L NC WITH SPO2 >90%. WOUND TO COCCYX, HOSPITALIST BERNA HAILE. PICTURES TAKEN. PUREWICK REPLACED. BED ALARM ON, CALL LIGHT IN REACH.
[2024-06-22 22:10] VITALS: BP 147/90
[2024-06-22 22:23] LABS: Base Excess Venous 2.3 mmol/L; Bicarbonate Venous 26.3 mmol/L (24.0-30.0); PCO2 Venous 37.9 mmHg (38-42); pH Blood Venous 7.45 (7.34-7.37)
--- NOTE | 2024-06-22 22:30 | NUR ---
UPDATE CALL PALCED TO HOSPITALIST BERNA FOR ORDER CLARIFICATION. THIS RN SPOKE WITH BERNA ABOUT PATIENT'S FLUID STATUS AND WOUND CARE. HOSPITALIST TO CONTINUE FLUIDS ORDERED. PATIENT HAS INPATIENT WOUND CONSULT ORDERED, NO NEW WOUND CARE ORDERS PLACED AT THIS TIME. WOUND CLEANSED WITH SALINE, DRIED WITH GAUZE AND CLEAN MEPLILEX PLACED OVER WOUND. PATIENT FLOATED WITH PILLOWS TO REDUCE PRESSURE.
[2024-06-22 23:30] VITALS: BP 146/70
[2024-06-23] MEDS ORDERED: Meropenem 1,000 MG in NS 100 ML IV SCH (02:00)
[2024-06-23 03:30] VITALS: BP 144/78
[2024-06-23 04:06] LABS: BASOPHILS ABSOLUTE AUTO 0.01 K/mm3 (0.00-0.23); BASOPHILS PERCENT AUTO 0 % (0-2); EOSINOPHILS ABSOLUTE AUTO 0.03 K/mm3 (0.00-0.68); EOSINOPHILS PERCENT AUTO 1 % (0-6); Hematocrit 28.6 % (33.0-51.0); Hemoglobin 9.1 g/dL (11.5-16.0); IMMATURE GRAN ABSOLUTE AUTO 0.06 K/mm3 (0.00-0.10); IMMATURE GRAN PERCENT AUTO 1 % (0-1); LYMPHOCYTES ABSOLUTE AUTO 1.31 K/mm3 (0.84-5.20); LYMPHOCYTES PERCENT AUTO 27 % (21-46); MONOCYTES ABSOLUTE AUTO 0.39 K/mm3 (0.16-1.47); MONOCYTES PERCENT AUTO 8 % (4-13); Mean Corpuscular HGB Conc 31.8 g/dL (31.5-36.5); Mean Corpuscular Volume 101 fL (80-100); Mean Platelet Volume 9.9 fL (9.1-12.4); NEUTROPHILS ABSOLUTE AUTO 3.09 K/mm3 (1.96-9.15); NEUTROPHILS PERCENT AUTO 63 % (41-73); Platelet Count 110 K/mm3 (150-400); RDW Coefficient Variation 21.1 % (11.7-14.2); RDW Standard Deviation 73.2 fL (35.1-46.3); Red Blood Cell Count 2.84 M/mm3 (3.80-5.20); White Blood Cell Count 4.89 K/mm3 (4.00-11.30)
[2024-06-23 04:21] LABS: International Normalized Ratio 1.07; Prothrombin Time Results 11.4 Sec (9.7-11.5)
[2024-06-23 04:27] LABS: Albumin, Blood 2.6 g/dL (3.4-5.0); Albumin/Globulin Ratio 0.5 (0.8-1.8); Bilirubin, Total 0.4 mg/dL (0.1-1.0); Bun/Creatinine Ratio 29.2 (12.0-20.0); Calcium, Blood 9.3 mg/dL (8.5-10.1); Creatinine, Blood 1.2 mg/dL (0.40-1.00); Globulin, Blood 5.3 g/dL (2.2-4.0); Magnesium, Blood 1.9 mg/dL (1.6-2.4); Potassium, Blood 4.2 mmol/L (3.5-5.5); Total Protein, Blood 7.9 g/dL (6.4-8.2)
--- NOTE | 2024-06-23 05:50 | NUR ---
SHIFT SUMMARY PATIENT RESPONDS TO PAINFUL STIMULI. NO CHANGES TO NEURO STATUS SINCE ADMISSION. PATIENT WILL NOT TRACK STAFF AND IS UNABLE TO FOLLOW COMMANDS. ON 1-2L NC WITH SPO2 >90. ON TELE, AFIB 80s. UNABLE ASSESS IF PATIENT IS HAVING CHEST PAIN D/T NEURO STATUS. PUREWICK IN PLACE. PATIENT WITH SIGNIFICANT PRESSURE ULCER TO COCCYX, SEE PREVIOUS NOTE. NO SIGNIFICANT CHANGES, WILL REPORT TO DAY SHIFT RN.
[2024-06-23 07:41] VITALS: BP 139/85
[2024-06-23] MEDS ORDERED: Enoxaparin 40 MG/0.4 ML SYR SC SCH (09:00)
--- NOTE | 2024-06-23 11:13 | NUR ---
THIS RN SENT PRIMARY NURSE TO LUNCH. DR. NEWMAN CAME TO THE UNIT AND THIS RN DISCUSSED DROP IN HGB AND HCT. DR. NEWMAN WOULD LIKE THE LOVENOX AND BABY ASPRIN TO STILL BE GIVEN. D/T SEVERE DECUBITIS WOUND A HERRING CATH WAS ORDERED FOR THE PT. A SURGICAL CONSULT WAS PLACED FOR DR. DAVID. THIS WAS CALLED INTO THE OFFICE. D/T THE PT BEING NPO FLUIDS NEED TO CONTINUE AT 75ML/HR, AND DR. NEWMAN WILL LOOK INTO DIURETICS IF NEEDED D/T BNP >1200. SEE NOTES FOR UPDATES.
[2024-06-23 12:00] VITALS: BP 133/94
[2024-06-23] MEDS ORDERED: TPN Consult Notification XX ONE (13:35)
[2024-06-23 14:07] LABS: Triglycerides 149 mg/dL (30-160)
[2024-06-23 15:45] VITALS: BP 137/87
[2024-06-23] MEDS ORDERED: Parenteral Electolytes 40 ML,Potassium Phosphate Dibasic 30 MM,Multivitamins 10 ML,ZINC... IV SCH (17:00)
--- NOTE | 2024-06-23 18:48 | NUR ---
SHIFT SUMMERY: NEURO: PT APPEARS TO HAVE CLEARED UP THROUGHOUT SHIFT BUT STILL REMAINS CONFUSED. PT IS ABLE TO STATE NAME AND WAS ABLE TO TELL THIS RN ONE TIME TODAY WHERE SHE WAS AT. FOR A MAJORITY OF THE SHIFT WHEN PT WAS ASKED A QUESTIONS SHE RESPONDED WITH "LEAVE ME ALONE STUPID BITCH", "IM DONE", "SHUT UP" OR LEAVE ME ALONE". PT FOLLOWED PHYSICAL COMMANDS AND WAS ABLE TO ASSIST STAFF WITH ROLLING IN BED. PT WILL LAY THERE AND STARE OFF. PT TRACKS THIS RN OFF AND ON WHEN REQUESTED, BUT APPEARS TO NOT WANT TO BE COMPLIANT WITH ASSESSMENTS. CARDIAC: UNABLE TO ASSESS FOR CP DUE TO PT NOT ANSWERING QUESTIONS APPROPRIATELY. REMAINED ON TELE THROUGHOUT SHIFT. VSS. RESP: PT WAS ON RA MOST OF SHIFT BUT REQUIRED O2 THIS EVEVNING DUE TO DESAT WHILE SLEEPING. DID NOT APPEAR TO BE SOB AT ANY TIME DURING SHIFT. GI/: HERRING PLACED DUE TO COCCYX WOUND. DRAINING YELLOW URINE. PT REMAINS NPO. PT WAS STARTED ON PPN THIS AFTERNOON. SKIN: MEPILEX PLACED TO WOULD ON COCCXYX. PICTURES TAKEN AND PLACED IN CHART. SURG WAS CONSULTED FOR WASHOUT. PT GOT A HEAD MRI AND A ABD CT TODAY. POWERGLIDE PLACED TO KURT. NO OTHER SIGNIFICANT EVENTS HAPPENED DURING THIS SHIFT. WILL CONTINUE TO CARE FOR PT TILL END OF SHIFT.
[2024-06-23 21:16] VITALS: BP 143/97
[2024-06-24] VITALS (7 sets, daily range): BP systolic 128–178; BP diastolic 59–83
[2024-06-24 04:31] LABS: Hematocrit 24.5 % (33.0-51.0); Hemoglobin 7.6 g/dL (11.5-16.0); Mean Corpuscular HGB 31.4 pg (26.0-34.0); Mean Corpuscular Volume 101 fL (80-100); Mean Platelet Volume 10.2 fL (9.1-12.4); Platelet Count 100 K/mm3 (150-400); RDW Coefficient Variation 20.7 % (11.7-14.2); RDW Standard Deviation 74.6 fL (35.1-46.3); Red Blood Cell Count 2.42 M/mm3 (3.80-5.20); White Blood Cell Count 4.11 K/mm3 (4.00-11.30)
[2024-06-24 05:03] LABS: Bun/Creatinine Ratio 35.8 (12.0-20.0); Calcium, Blood 8.9 mg/dL (8.5-10.1); Creatinine, Blood 1.06 mg/dL (0.40-1.00); Potassium, Blood 4.4 mmol/L (3.5-5.5)
[2024-06-24 05:27] LABS: Hematocrit 23.9 % (33.0-51.0); Hemoglobin 7.5 g/dL (11.5-16.0); Mean Corpuscular HGB 31.5 pg (26.0-34.0); Mean Corpuscular HGB Conc 31.4 g/dL (31.5-36.5); Mean Corpuscular Volume 100 fL (80-100); Mean Platelet Volume 10.3 fL (9.1-12.4); Platelet Count 100 K/mm3 (150-400); RDW Standard Deviation 74.5 fL (35.1-46.3); Red Blood Cell Count 2.38 M/mm3 (3.80-5.20); White Blood Cell Count 3.95 K/mm3 (4.00-11.30)
--- NOTE | 2024-06-24 07:22 | NUR ---
SHIFT SUMMARY: A&O TO SELF, PLACE, AND PERSON. VSS ON 1L NC. ATTEMPTED TO DC O2, PT DROPPED TO 86% ON RA. PT CONVERTED FROM A-FIB TO SR AROUND 2200, THEN EARLY THIS MORNING SHE DIPPED BRIEFLY TO SB IN THE 40'S. PT DENIES PAIN. PT'S HGB THIS MORNING WAS 7.5, HCT 23.9, CALLED RESIDENT @ 0542 AND MADE AWARE. NEW ORDER FOR A RE-DRAW AT 0900. PT IS ASYMPTOMATIC, VSS. PT REMAINS NPO, PT FREQUENTLY REQUESTING WATER, GAVE A FEW ICE CHIPS, PT DID WELL. HERRING CATHETER DRAINING LIGHT YELLOW URINE. NO BM THIS SHIFT. REPOSITIONED TOLERATED, NOOB THIS SHIFT. BED IN LOWEST POSITION, CALL LIGHT WITHIN REACH. PT DOES NOT USE CALL LIGHT APPROPRIATELY, BED ALARM SET FOR PT'S SAFETY. CONTACT PRECAUTIONS MAINTAINED.
[2024-06-24 10:10] LABS: Hematocrit 24.3 % (33.0-51.0); Hemoglobin 7.5 g/dL (11.5-16.0)
[2024-06-24] MEDS ORDERED: Metoprolol Succinate 25 MG TABCR PO SCH (12:00)
[2024-06-24] MEDS ORDERED: Parenteral Electolytes 40 ML,Potassium Phosphate Dibasic 30 MM,Multivitamins 10 ML,ZINC... IV SCH (17:00)
[2024-06-24] MEDS ORDERED: Hyaluronidase 150 UNIT/ML Vial SC ONE ×2 (18:35→23:15)
--- NOTE | 2024-06-24 18:51 | NUR ---
SHIFT SUMMERY: NEURO: PT A&OX3 AT BEGINING OF SHIFT AND IS NOW A&OX4. PT HAS BEEN PLESANTLY HALLUCINATING THROUGHOUT SHIFT. CARDIAC: PT HAS BEEN SINUS IN THE 50'S-70'S OR SINUS IN THE 120-130'S. PROVIDER AWARE. PT GIVEN 12.5MG OF METOPROLOL THIS AFTERNOON. PT HAS DENIED ANY CP DURING SHIFT. RESP: NO ACUTE CHANGES. REMAINS ON RA. GI/: HERRING REMAINS IN PLACE DUE TO WOUND ON COCCYX. PT HAS NO HAD A BOWEL MOVEMENT TODAY. SKIN: PT HAS WOUND TO COCCYX. DR DAVID CAME AND SAW PT TODAY AND SAID THAT PT DOES NOT NEED SURGERY. DRESSING CHANGED AND REMAINS IN PLACE. PT HAS BEEN REPOSITIONED Q2 THROUGHOUT SHIFT. PTS POWER IN HER KURT INFILTRATED THIS EVENING. AWAITING HYALURONIDASE FROM PHARMACY. PROVIDER AWARE. NO OTHER SIGNIFICANT EVENTS HAPPENED DURING THIS SHIFT.
--- NOTE | 2024-06-24 20:00 | NUR ---
UPDATE ASSUMED CARE OF PT AT 1900. PT RESTING IN BED, EATING A PUDDING. POWERGLIDE TO KURT INFILTRATED WITH PPN. OUTLINED INFILTRATION SITE OF KURT WITH SKIN MARKER. AMPHADASE INJECTIONS ADMINISTERED.
[2024-06-25] VITALS (7 sets, daily range): BP systolic 138–181; BP diastolic 53–73
[2024-06-25] MEDS ORDERED: HydrALAZINE HCl 20 MG / ML 1ML Vial IV PRN (01:25)
[2024-06-25 04:54] LABS: Hematocrit 25.5 % (33.0-51.0); Hemoglobin 8.1 g/dL (11.5-16.0); Mean Corpuscular HGB 31.5 pg (26.0-34.0); Mean Corpuscular HGB Conc 31.8 g/dL (31.5-36.5); Mean Corpuscular Volume 99 fL (80-100); Mean Platelet Volume 10.2 fL (9.1-12.4); Platelet Count 99 K/mm3 (150-400); RDW Coefficient Variation 20.8 % (11.7-14.2); RDW Standard Deviation 73.1 fL (35.1-46.3); Red Blood Cell Count 2.57 M/mm3 (3.80-5.20); White Blood Cell Count 5.35 K/mm3 (4.00-11.30)
[2024-06-25 05:30] LABS: Calcium, Blood 9.2 mg/dL (8.5-10.1); Magnesium, Blood 1.9 mg/dL (1.6-2.4); Phosphorus, Blood 2.2 mg/dL (2.5-4.9); Potassium, Blood 4.4 mmol/L (3.5-5.5)
--- NOTE | 2024-06-25 06:39 | NUR ---
SHIFT SUMMARY: A&OX4, ABLE TO ANSWER ORIENTATION QUESTIONS PROPERLY, BUT HALLUCINATING AT TIMES. HTN, SYS >180, RESIDENT CALLED, SEE NEW ORDERS. OTHER VSS, ON RA. SR IN THE 60'S. PT C/O PAIN IN HER KURT WHERE PPN INFILTRATED ON DAY SHIFT. THIS RN INJECTED THE AMPHADASE TWICE. TOLERATING A MINCED AND MOIST DIET. PPN INFUSING PER EMAR. HERRING CATHETER DRAINING CLOUDY, LIGHT YELLOW URINE. NO BM THIS SHIFT. SACRAL WOUND CLEANSED AND MEPLEX REPLACED. REPOSITIONED TOLERATED, PT FREQUENTLY REPOSITIONS HERSELF IN BED. NOOB THIS SHIFT. BED IN LOWEST POSITION, CALL LIGHT WITHIN REACH. CALLS APPROPRIATELY AND IS ABLE TO ADVOCATE NEEDS EFFECTIVELY. CONTACT PRECAUTIONS MAINTAINED.
[2024-06-25] MEDS ORDERED: Aspirin 81 MG Chew PO SCH (09:00)
[2024-06-25] MEDS ORDERED: Losartan Potassium 25 MG Tab PO SCH (09:00)
--- NOTE | 2024-06-25 18:47 | NUR ---
SHIFT SUMMERY: NEURO: NO ACUTE CHANGES. CARDIAC: PT HYPERTENSIVE THIS EVENING. RECIEVED HYDRALAZINE. BP IMPROVED. REMAINED FREE OF ANY CP. RESP: NO ACUTE CHANGES. REMAINED ON RA. GI/: HERRING REMAINS IN PLACE. PT WAS ABLE TO AMBULATE TO THE BATHROOM THIS EVENING TO HAVE A BOWEL MOVEMENT. PPN WAS DC'D. NO OTHER SIGNIFICANT EVENTS HAPPENED DURING THIS SHIFT. WILL CONTINUE TO CARE FOR PT TILL END OF SHIFT.
[2024-06-26 00:18] VITALS: BP 154/58
[2024-06-26 04:03] VITALS: BP 136/46
[2024-06-26 04:44] LABS: Magnesium, Blood 1.8 mg/dL (1.6-2.4); Phosphorus, Blood 2.5 mg/dL (2.5-4.9)
--- NOTE | 2024-06-26 05:11 | NUR ---
SHIFT SUMMARY PT A&OX4. VSS ON . PT REQUIRED 2L NC THROUGHOUT NIGHT DURING DEEP SLEEP TO REMAIN >92%. PT RECIEVED ABX PER AUG. PT WAS ABLE TO TURN SELF IN BED THROUGHOUT NIGHT RELIEVING PRESSURE OFF OF BOTTOM. PT AMBULATING TO BATHROOM WITH ONE PERSON ASSIST. NO FURTHER QUESTIONS OR CONCERNS AT THIS TIME. CALL SÁNCHEZ WITHIN REACH. BED ALARM SET.
[2024-06-26 08:42] VITALS: BP 137/78
--- NOTE | 2024-06-26 10:15 | NUR ---
am note this rn assumed care at 0700. vital signs stable. tele sinus rhythm. patient is alert and oriented x4. neuro is intact. patient is able to make needs known, but needs lots of motivation for praticpating in activities of daily living. patient denies pain, chest pain/pressure or shortness of breath. see shift assessment for further detials. md kimball in to see patient and dicussed placement options.
--- NOTE | 2024-06-26 10:29 | NUR ---
UPDATE plan for patient to go home with home health, tentative discharge date is wednesday
--- NOTE | 2024-06-26 13:17 | NUR ---
UPDATE patient refusing to get up to chair despite multiple attempts from this rn and staff.
[2024-06-26 15:46] VITALS: BP 137/43
--- NOTE | 2024-06-26 18:18 | NUR ---
shift summary patient neuro remains intact and unchanged. vitals remain stable. no acute changes. despite many attemtps patient refused to get up into the chair. stating " i cant sit on my butt". this rn listened to the patient and verbalized understanding. patient repositions self independently in the room.
[2024-06-26 20:00] VITALS: BP 111/46
--- NOTE | 2024-06-26 22:21 | NUR ---
NURSE NOTE PATIENT FROM SINUS RYTHM TO A-FIB THIS PATIENT HAS PREVIOUSLY BEEN IN AFIB.
[2024-06-26] MEDS ORDERED: Metoprolol Tartrate 1 MG/ML 5 ML VIAL IV PRN (22:50)
[2024-06-26] MEDS ORDERED: Metoprolol Tartrate 1 MG/ML 5 ML VIAL IV ONE (22:50)
[2024-06-26 23:00] VITALS: BP 114/71
[2024-06-26 23:07] LABS: BASOPHILS ABSOLUTE AUTO 0.02 K/mm3 (0.00-0.23); BASOPHILS PERCENT AUTO 0 % (0-2); EOSINOPHILS ABSOLUTE AUTO 0.17 K/mm3 (0.00-0.68); EOSINOPHILS PERCENT AUTO 4 % (0-6); Hematocrit 26.5 % (33.0-51.0); Hemoglobin 8.3 g/dL (11.5-16.0); Mean Corpuscular HGB 31.4 pg (26.0-34.0); Mean Corpuscular HGB Conc 31.3 g/dL (31.5-36.5); Mean Corpuscular Volume 100 fL (80-100); Mean Platelet Volume 10.4 fL (9.1-12.4); Platelet Count 81 K/mm3 (150-400); RDW Coefficient Variation 21.1 % (11.7-14.2); RDW Standard Deviation 74.3 fL (35.1-46.3); Red Blood Cell Count 2.64 M/mm3 (3.80-5.20); White Blood Cell Count 4.49 K/mm3 (4.00-11.30)
[2024-06-26 23:23] LABS: IMMATURE GRAN ABSOLUTE AUTO 0.04 K/mm3 (0.00-0.10); IMMATURE GRAN PERCENT AUTO 1 % (0-1); LYMPHOCYTES ABSOLUTE AUTO 1.32 K/mm3 (0.84-5.20); LYMPHOCYTES PERCENT AUTO 29 % (21-46); MONOCYTES ABSOLUTE AUTO 0.33 K/mm3 (0.16-1.47); MONOCYTES PERCENT AUTO 7 % (4-13); NEUTROPHILS ABSOLUTE AUTO 2.61 K/mm3 (1.96-9.15); NEUTROPHILS PERCENT AUTO 58 % (41-73)
--- NOTE | 2024-06-26 23:26 | NUR ---
NURSE NOTE CALL PLACED TO MD FOR HEART RATE OF 135 AND PATIENT RHYTHM CHANGE. LOPRESSOR PUSH OF 5MG IV GIVEN PER MD ORDERS. HR 125 AFTER IV PUSH WAS GIVEN. PATIENT DENIES ANY PAIN OR DISCOMFORT AT THIS TIME. REPOSTION OFFERED WHILE IN ROOM PT DECLINED AND STATED SHE HAS BEEN MOVING HERSELF. CALL LIGHT IN REACH, WILL CONTINUE TO TREAT.
[2024-06-26 23:28] LABS: Calcium, Blood 9.4 mg/dL (8.5-10.1); Creatinine, Blood 1.06 mg/dL (0.40-1.00); Magnesium, Blood 2.2 mg/dL (1.6-2.4); Potassium, Blood 4.7 mmol/L (3.5-5.5)
[2024-06-27] VITALS (7 sets, daily range): BP systolic 114–145; BP diastolic 56–87
--- NOTE | 2024-06-27 04:19 | NUR ---
UPDATE PATIENT SWITCHED BACK INTO SINUS RHYTHM AT AROUND 0315 BEFORE THE THIRD DOSE OF LOPRESSOR WAS GIVEN. PATIENT IS NOW RESTING IN BED, CALL LIGHT IN REACH.
--- NOTE | 2024-06-27 04:45 | NUR ---
SHIFT SUMMARY PATIENT REMAINS A+O X4 NEURO INTACT, ABLE TO MAKE NEEDS KNOWN. SINUS RYTHM ON TELE. ON 2 LITERS NC SATTING 94% AND ABOVE DURING SHIFT. NEW POWERGLIDE PLACED DURING SHIFT BY LOCKER ATTENDANT. PATIENT REPOSTIONING SELF IN BED. CALL LIGHT IS IN REACH, BED IN LOWEST POSTION FOR SAFETY. WILL CONTINUE TO TREAT, AND REPORT TO ON COMING RN.
--- NOTE | 2024-06-27 08:15 | NUR ---
AM NOTE: PATIENT SLEEPY UPON SHIFT START LAYING IN BED. ALERT AND ORIENTED. SOFT SPOKEN. MOVING ALL EXTREMITIES. PERRLA. DENIES HEADACHE/VISION CHANGES. DENIES NUMBNESS/TINGLING. OVERALL WEAK. UP TO BATHROOM WITH 1-2 PERSON, FWW AND GAIT BELT. ABLE TO TURN SELF IN BED. REFUSING STAFF THIS AM TO ASSIST WITH TURN. PATIENT EDUCATED ON WOUND CARE AND IMPORTANCE OF REDUCING PRESSURE ON WOUND. TELE SHOWING AFLUTTER WITH HR 120'S. PATIENT DENIES CHEST PAIN/PRESSURE/PALPIATIONS. SBP 120'S. IV METOPROLOL GIVEN THIS AM PER EMAR FOR ELEVATED HR. PPP. MINIMAL EDEMA NOTED THROUGHOUT. IV SALINE LOCKED. ON 2L NASAL CANNULA UPON SHIFT START SATING 99%. EVEN AND UNLABORED RESPIRATIONS. LUNG SOUNDS CLEAR AND DIM IN BASES. DENIES SOB/COUGH. TITRATED TO 1L NASAL CANNULA. BOWEL TONES PRESENT THROUGHOUT ALL FOUR QUADRANTS. POOR ORAL INTAKE. TAKING SMALL SIPS OF WATER. PATIENT REFUSING BREAKFAST THIS AM. UP TO BATHROOM THIS AM, BOWEL MOVEMENT X1. HERRING CATH IN PLACE DRAINING CLEAR/YELLOW URINE TO GRAVITY. ATTENDS IN PLACE. COCCYX WOUND CLEANSED AND REDRESSED. SKIN OVERALL FRAGILE WITH SCATTERED BRUISING THROUGHOUT. SMALL ABRASIONS TO BACK WITH SCABBING. CALL LIGHT IN REACH. PATIENT REFUSING RECLINER. ENCOURAGED TO MOVE AROUND IN BED AND GET UP. DENIES NEEDS AT THIS TIME.
--- NOTE | 2024-06-27 10:30 | NUR ---
CONVERSION TO SR AT 1026. HR 70'S.
--- NOTE | 2024-06-27 16:06 | NUR ---
CASE MANAGEMENT TO BEDSIDE THIS AFTERNOON WELL FERRYBOAT HELPER. PATIENT CONSUMED A FAIR AMOUNT OF LUNCH WITH FERRYBOAT HELPER AND DAUGHTER AT BEDSIDE. PLANS TO RETURN TO SNF AT THIS POINT. PATIENT TURNING SELF IN BED. VITAL SIGNS CONTINUE TO BE STABLE. TELE SHOWING SR WITH HR 60-70'S. TITRATED TO ROOM AIR AND SATING MID 90'S. CALL LIGHT IN REACH.
--- NOTE | 2024-06-27 18:34 | NUR ---
NO ACUTE CHANGES. PATIENT ON 1L NASAL CANNULA. REMAINS SR AT THIS TIME. VITAL SIGNS STABLE. HERRING CATH IN PLACE DRAINING TO GRAVITY. UP TO BATHROOM AND BM X1 THIS SHIFT. IMPROVED ORAL INTAKE THIS AFTERNOON AND EVENING. PATIENT DENIES PAIN. Q2 TURNING PATIENT ALLOWS. ENCOURAGED TO WORK WITH PT/OT AND GET UP TO CHAIR. CALL LIGHT IN REACH. DENIES NEEDS AT THIS TIME.
[2024-06-27] MEDS ORDERED: Metoprolol Succinate 25 MG TABCR PO SCH (21:00)
[2024-06-28] VITALS: BP 117/48
[2024-06-28 04:00] VITALS: BP 113/41
--- NOTE | 2024-06-28 08:55 | NUR ---
Pt is alert, oriented and pleasanlty conversant. She was assisted (minimally needed) to get to chair. Spo2 94-100% while on room air.
--- NOTE | 2024-06-28 08:56 | NUR ---
bladder training started .
[2024-06-28 08:57] VITALS: BP 129/51
--- NOTE | 2024-06-28 08:59 | NUR ---
Pt has been accepted at [facility], per Dr. Mayo. Isolation dc/d per Emily Alamo in infection control.
--- NOTE | 2024-06-28 10:22 | NUR ---
Marcel unclamped from 0945 to 1000. Reclamped at 1000.
--- NOTE | 2024-06-28 11:44 | NUR ---
Telephone report given to nurse Sotelo at [facility] at this time.
== END 2024-06-28 11:56 | DRG 91 ==
LOC: ER 13:00 → PCU 17:51
PROVIDERS: Emergency Medicine; Internal Medicine; Nurse Practitioner Acute Care; Student in an Organized Health Care Education/Training Program; ADMIT Internal Medicine
DX: G92.8 Other toxic encephalopathy (principal); L89.153 Pressure ulcer of sacral region, stage 3; Z16.12 Extended spectrum beta lactamase (ESBL) resistance; N13.6 Pyonephrosis; J96.11 Chronic respiratory failure with hypoxia; I25.10 Atherosclerotic heart disease of native coronary artery without angina pectoris; I48.91 Unspecified atrial fibrillation; E66.9 Obesity, unspecified; Z66 Do not resuscitate; N18.32 Chronic kidney disease, stage 3b; J44.9 Chronic obstructive pulmonary disease, unspecified; E83.39 Other disorders of phosphorus metabolism; D63.1 Anemia in chronic kidney disease; I12.9 Hypertensive chronic kidney disease with stage 1 through stage 4 chronic kidney disease, or unspecified chronic kidney disease; Z86.73 Personal history of transient ischemic attack (TIA), and cerebral infarction without residual deficits; Z88.8 Allergy status to other drugs, medicaments and biological substances; Z87.442 Personal history of urinary calculi; Z95.1 Presence of aortocoronary bypass graft; Z87.891 Personal history of nicotine dependence; Z79.899 Other long term (current) drug therapy; Z68.39 Body mass index [BMI] 39.0-39.9, adult
CPT/HCPCS: 0202U; 36415; 51702; 70450; 70496; 70498; 70551; 71045; 74176; 80048; 80053; 81001; 82728; 82803; 82947; 83605; 83690; 83735; 83880; 84100; 84145; 84439; 84443; 84478; 84484; 85014; 85018; 85025; 85027; 85610; 86850; 86900; 86901; 87040; 87086; 92526; 92610; 93005; 93010; 94762; 96374-59; 96375-59; 99285-25; A9270; C1751; J0360; J1650; J2060; J2185; J3411; J3470; J7030; J7060; J7070; J7120; Q9967

== ENCOUNTER → 2024-09-08 | Outpatient (CLI) | payer MEDICARE | END | disposition home or self-care (01) | LOC: LAB 14:00 → LAB SHORT 14:00 | DX: M46.38 Infection of intervertebral disc (pyogenic), sacral and sacrococcygeal region (principal); L89.156 Pressure-induced deep tissue damage of sacral region | CPT/HCPCS: 87070; 87075; 87076; 87147; 87185; 87205 ==

== ENCOUNTER 2024-10-24 02:31 | Day surgery (SDC) | payer MEDICARE | END 2024-10-24 23:49 | disposition home or self-care (01) | LOC: WOUND 02:31 | DX: T81.31XD Disruption of external operation (surgical) wound, not elsewhere classified, subsequent encounter (principal); I12.9 Hypertensive chronic kidney disease with stage 1 through stage 4 chronic kidney disease, or unspecified chronic kidney disease; N18.32 Chronic kidney disease, stage 3b; J44.9 Chronic obstructive pulmonary disease, unspecified; I48.91 Unspecified atrial fibrillation | CPT/HCPCS: A6213; G0463 ==

== ENCOUNTER → 2024-10-24 | Outpatient (CLI) | payer MEDICARE | END | disposition home or self-care (01) | LOC: LAB 16:17 → LAB SHORT 16:17 | DX: N39.0 Urinary tract infection, site not specified (principal); R31.9 Hematuria, unspecified | CPT/HCPCS: 87077; 87086; 87186 ==

== ENCOUNTER 2024-11-20 03:31 | Day surgery (SDC) | payer MEDICARE ==
[2024-11-20] MEDS ORDERED: Miconazole Nitrate 2% 85 GM PWD ONE (13:56)
== END 2024-11-20 23:50 | disposition home or self-care (01) ==
LOC: WOUND 03:31
DX: T81.31XA Disruption of external operation (surgical) wound, not elsewhere classified, initial encounter (principal); L98.492 Non-pressure chronic ulcer of skin of other sites with fat layer exposed; I12.9 Hypertensive chronic kidney disease with stage 1 through stage 4 chronic kidney disease, or unspecified chronic kidney disease; N18.32 Chronic kidney disease, stage 3b; Y83.9 Surgical procedure, unspecified as the cause of abnormal reaction of the patient, or of later complication, without mention of misadventure at the time of the procedure
CPT/HCPCS: A6213; A9270; G0463

== ENCOUNTER 2024-12-18 05:04 | Day surgery (SDC) | payer MEDICARE, BC ==
[2024-12-18] MEDS ORDERED: Miconazole Nitrate 2% 85 GM PWD ONE (14:32)
== END 2024-12-18 23:00 | disposition home or self-care (01) ==
LOC: WOUND 05:04
DX: T81.31XA Disruption of external operation (surgical) wound, not elsewhere classified, initial encounter (principal); L98.492 Non-pressure chronic ulcer of skin of other sites with fat layer exposed; I12.9 Hypertensive chronic kidney disease with stage 1 through stage 4 chronic kidney disease, or unspecified chronic kidney disease; N18.32 Chronic kidney disease, stage 3b; Y83.8 Other surgical procedures as the cause of abnormal reaction of the patient, or of later complication, without mention of misadventure at the time of the procedure
CPT/HCPCS: A6213; A9270; G0463

== ENCOUNTER 2025-01-01 01:16 | Day surgery (SDC) | payer MEDICARE, BC | END 2025-01-01 23:00 | disposition home or self-care (01) | LOC: WOUND 01:16 | DX: T81.31XA Disruption of external operation (surgical) wound, not elsewhere classified, initial encounter (principal); L98.492 Non-pressure chronic ulcer of skin of other sites with fat layer exposed; I12.9 Hypertensive chronic kidney disease with stage 1 through stage 4 chronic kidney disease, or unspecified chronic kidney disease; N18.32 Chronic kidney disease, stage 3b; Y83.8 Other surgical procedures as the cause of abnormal reaction of the patient, or of later complication, without mention of misadventure at the time of the procedure | CPT/HCPCS: A6213; G0463 ==

== ENCOUNTER 2025-01-15 01:03 | Day surgery (SDC) | payer MEDICARE, BC | END 2025-01-15 23:00 | disposition home or self-care (01) | LOC: WOUND 01:03 | DX: T81.31XD Disruption of external operation (surgical) wound, not elsewhere classified, subsequent encounter (principal); L98.492 Non-pressure chronic ulcer of skin of other sites with fat layer exposed; I12.9 Hypertensive chronic kidney disease with stage 1 through stage 4 chronic kidney disease, or unspecified chronic kidney disease; N18.32 Chronic kidney disease, stage 3b | CPT/HCPCS: A6213; G0463 ==